=== PATIENT | female | born 1980 | race Hispanic/Latino ===

== ENCOUNTER 2018-08-26 17:02 | Emergency (ER) | payer OTHER ==
[2018-08-26 17:12] VITALS: BP 128/88
[2018-08-26] MEDS ORDERED: PERCOCET 5/325 PO STA (17:51)
[2018-08-26] MEDS ORDERED: ZOFRAN ODT PO ONE (18:00)
[2018-08-26] MEDS ORDERED: ZOFRAN ODT ONE (18:02)
[2018-08-26 18:14] LABS: Hematocrit 37.2 % (30.3-42.9); Hemoglobin 13.3 gm/dl (10.1-14.3); Mean Corpuscular HGB Conc 36 % (30-34); Mean Corpuscular Volume 95 fl (79-97); Platelet Count 298 K/mm3 (140-440); Red Blood Count 3.93 M/mm3 (3.65-5.03); Red Cell Distribution Width 13.8 % (13.2-15.2)
[2018-08-26 18:18] LABS: Alanine Aminotransferase 31 units/L (7-56); Albumin 4.4 g/dL (3.9-5); BUN/Creatinine Ratio 9; Blood Urea Nitrogen 6 mg/dL (7-17); Calcium 9.7 mg/dL (8.4-10.2); Hemolysis Index 23
[2018-08-26 18:26] LABS: Bilirubin,Urine NEG (Negative); Blood,Urine LG (Negative); Color,Urine Straw (Yellow); Protein,Urine <15 mg/dL mg/dL (Negative); Urobilinogen,Urine < 2.0 mg/dL (<2.0); WBC,Urine < 1.0 /HPF (0.0-6.0)
[2018-08-26 18:27] LABS: HCG Qualitative,Urine Negative (Negative)
--- NOTE | 2018-08-26 19:18 | Emergency Department Report ---
ED Abdominal Pain HPI - General Chief Complaint: Abdominal Pain Stated Complaint: KIDNEY STONES Time Seen by Provider: 08/26/18 17:46 Source: patient Mode of arrival: Ambulatory Limitations: No Limitations - History of Present Illness Initial Comments: 38-year-old female with past medical history of an appendectomy and recurrent kidney stones presents to emergency department complaining of a one- day history of right flank pain that doesn't does radiate to her right lower quadrant. States she she reports no no hematuria. The pain is sharp and episodic and resembles her previous kidney stones. She reports having had several kidney stones in her teenage years, last at the age of 14. She reports nausea but no vomiting and having some occasional diarrhea. No fevers, chills or sweats. No chest pain or palpitations. She tried to take a Motrin 800 mg as she states that with the prescription strength version that she could take over- the-counter but it did not help her pain and seeks further evaluation and pain control. She denies any trauma. No vaginal discharge MD Complaint: flank pain -: Sudden Radiation: R flank Migration to: no migration Severity scale (0 -10): 9 Quality: stabbing, sharp Consistency: intermittent Associated Symptoms: nausea. denies: chills, dysuria, hematochezia - Related Data Home Medications Medication Instructions Recorded Confirmed Last Taken PARoxetine [Paxil] 20 mg PO DAILY 02/23/15 02/23/15 02/23/15 Previous Rx's Medication Instructions Recorded Last Taken Type Amoxicillin 500 mg PO TID #30 capsule 03/21/18 Unknown Rx Chlorhexidine Mouthwash [Peridex] 15 ml MM BID #1 bottle 03/21/18 Unknown Rx traMADol [Ultram] 50 mg PO Q6HR PRN #12 tablet 03/21/18 Unknown Rx Ondansetron [Zofran ODT TAB] 8 mg PO Q12HR #14 tab.rapdis 08/26/18 Unknown Rx Allergies Allergy/AdvReac Type Severity Reaction Status Date / Time metoclopramide [From Reglan] Allergy Anaphylaxis Verified 08/26/18 17:04 NSAIDS (Non-Steroidal Allergy Rash Verified 08/26/18 17:55 Anti-Inflamma ED Review of Systems ROS: Stated complaint: KIDNEY STONES Other details as noted in HPI Constitutional: denies: chills, fever Eyes: denies: eye pain, eye discharge, vision change ENT: denies: ear pain, throat pain Respiratory: denies: cough, shortness of breath, wheezing Cardiovascular: denies: chest pain, palpitations Endocrine: no symptoms reported Gastrointestinal: denies: abdominal pain, nausea, diarrhea Genitourinary: denies: urgency, dysuria, discharge Musculoskeletal: denies: back pain, joint swelling, arthralgia Skin: denies: rash, lesions Neurological: denies: headache, weakness, paresthesias Psychiatric: denies: anxiety, depression Hematological/Lymphatic: denies: easy bleeding, easy bruising ED Past Medical Hx - Past Medical History Previous Medical History?: No Hx Psychiatric Treatment: Yes (Depression, Anxiety) - Surgical History Hx Appendectomy: Yes - Social History Smoking Status: Current Every Day Smoker Substance Use Type: None - Medications Home Medications: Home Medications Medication Instructions Recorded Confirmed Last Taken Type PARoxetine [Paxil] 20 mg PO DAILY 02/23/15 02/23/15 02/23/15 History Amoxicillin 500 mg PO TID #30 capsule 03/21/18 Unknown Rx Chlorhexidine Mouthwash [Peridex] 15 ml MM BID #1 bottle 03/21/18 Unknown Rx traMADol [Ultram] 50 mg PO Q6HR PRN #12 tablet 03/21/18 Unknown Rx Ondansetron [Zofran ODT TAB] 8 mg PO Q12HR #14 tab.rapdis 08/26/18 Unknown Rx ED Physical Exam - General Limitations: No Limitations General appearance: alert, in no apparent distress - Head Head exam: Present: atraumatic, normocephalic - Eye Eye exam: Present: normal appearance - ENT ENT exam: Present: mucous membranes moist - Neck Neck exam: Present: normal inspection - Respiratory Respiratory exam: Present: normal lung sounds bilaterally. Absent: respiratory distress - Cardiovascular Cardiovascular Exam: Present: regular rate, normal rhythm. Absent: systolic murmur, diastolic murmur, rubs, gallop - GI/Abdominal GI/Abdominal exam: Present: soft, normal bowel sounds, other (no tenderness at McBurney's or Etienne sign. No Rovsing.). Absent: tenderness, guarding, rebound - Extremities Exam Extremities exam: Present: normal inspection - Back Exam Back exam: Present: normal inspection, CVA tenderness (R) - Neurological Exam Neurological exam: Present: alert, oriented X3 - Psychiatric Psychiatric exam: Present: normal affect, normal mood - Skin Skin exam: Present: warm, dry, intact, normal color. Absent: rash ED Course Vital Signs 08/26/18 08/26/18 08/26/18 17:10 18:11 18:31 Temperature 98.6 F Pulse Rate 120 H Respiratory 16 16 16 Rate Blood Pressure 128/88 O2 Sat by Pulse 98 Oximetry 08/26/18 18:52 Temperature Pulse Rate 101 H Respiratory 17 Rate Blood Pressure O2 Sat by Pulse 99 Oximetry - Reevaluation(s) Reevaluation #1: 08/26/18 18:26 Patient is ambulatory after receiving Percocet pain medication and nausea now requesting to drink Sprite. She appears to be in no acute distress. Reevaluation #2: 08/26/18 19:[address] scan. States that she has received several CAT scans as a child and does not wish to go any further with them the CAT scan a day. She is also Toradol, stating she is now allergic to taking NSAIDs for pain and feels Beairsto has had kidney stones and wants to be treated as such. ED Medical Decision Making - Lab Data Result diagrams: 08/26/18 17:41 08/26/18 17:41 - Medical Decision Making 38-year-old female with a reported history of recurrent kidney stones. Having right flank pain associated with nausea, resolved with oral pain control. Requesting pain medication to go home. However, she is refusing IV medication and IV fluid and IV fluids, CT contrast for any source of radiation. Critical care attestation.: If time is entered above; I have spent that time in minutes in the direct care of this critically ill patient, excluding procedure time. ED Disposition Clinical Impression: Flank pain, Hematuria Disposition: [id number] TO HOME OR SELFCARE Is pt being admited?: No Does the pt Need Aspirin: No Condition: Stable Instructions: Abdominal Pain (ED), Acute Hematuria (ED), Flank Pain (ED) Prescriptions: Ondansetron [Zofran ODT TAB] 8 mg PO Q12HR #14 tab.mando Referrals: [facility] [Provider Group] - 3-5 Days
== END 2018-08-26 20:15 | disposition home or self-care (01) ==
LOC: ED 17:02
DX: R10.31 Right lower quadrant pain (principal); R31.9 Hematuria, unspecified; F32.9 Major depressive disorder, single episode, unspecified; F41.9 Anxiety disorder, unspecified; F17.200 Nicotine dependence, unspecified, uncomplicated
CPT/HCPCS: 36415; 80053; 81001; 81025; 85027; Q0162